=== PATIENT | male | born 1990 | race Two or more races ===

== ENCOUNTER 2016-10-01 03:53 | Emergency (ER) | payer SELFPAY ==
[2016-10-01] MEDS ORDERED: SULFAMETHOXAZOLE 800 MG/TRIMETHOPRIM 160 MG TABLET ONE (04:21)
[2016-10-01] MEDS ORDERED: CIPROFLOXACIN 500 MG TABLET ONE (04:21)
== END 2016-10-01 04:47 | disposition home or self-care (01) ==
LOC: ED 03:53
DX: S91.115A Laceration without foreign body of left lesser toe(s) without damage to nail, initial encounter (principal); W27.8XXA Contact with other nonpowered hand tool, initial encounter; Y93.E1 Activity, personal bathing and showering; Y92.002 Bathroom of unspecified non-institutional (private) residence as the place of occurrence of the external cause
CPT/HCPCS: 99283; 99282; A9270 ×2